=== PATIENT | female | born 1960 | race African-American/Black ===

== ENCOUNTER 2023-11-01 13:09 | Emergency (ER) | payer OTHER ==
[~2023-11-01] VITALS: Ht 165.1 cm; Wt 90.0 kg
[2023-11-01 13:11] VITALS: BP 196/93; PULSE 100; RESP 18; TEMP 98.6; O2SAT 98
== END 2023-11-01 15:12 | disposition left against medical advice (07) ==
LOC: ER 13:09
DX: M79.603 Pain in arm, unspecified (principal); Z53.21 Procedure and treatment not carried out due to patient leaving prior to being seen by health care provider